=== PATIENT | male | born 1950 | race Two or more races ===

== ENCOUNTER 2020-08-14 12:29 | Emergency (ER) | payer SELFPAY ==
[~2020-08-14] VITALS: Ht 165.1 cm; Wt 87.1 kg
[2020-08-14 13:38] VITALS: BP 131/86
== END 2020-08-14 14:17 | disposition home or self-care (01) ==
LOC: ER 12:29
DX: Z76.0 Encounter for issue of repeat prescription (principal); E11.9 Type 2 diabetes mellitus without complications; I10 Essential (primary) hypertension